=== PATIENT | male | born 1965 | race Caucasian/White ===

== ENCOUNTER 2018-01-14 11:34 | Observation (INO) | payer MEDICAID ==
[~2018-01-14] VITALS: Ht 160 cm; Wt 137.3 kg
--- NOTE | ~2018-01-14 | MORECARE ---
CASE MANAGEMENT DISCHARGE SUMMARY PATIENT: CYNTHIA SCHMITZ JOSHUA UNIT: [id number] ADM DATE: 01/14/18 AGE: 52 : 69 SEX: M ROOM/BED: D.2121 AUTHOR: CLINT HERNÁNDEZ PHYSICIAN: REFERRING PHYSICIAN: RADHA HEWITT MD DATE OF SERVICE: 01/16/18 Discharge Plan Patient Name: CYNTHIA SCHMITZ [facility] 1965 Planned Disposition: Home Anticipated Discharge Date: 01/15/18 Discharge Date: 01/15/2018 Expected LOS: 1 Initial Reviewer: [id number] Initial Review Date: 01/16/2018 Generated: 01/16/18 9:54 am Patient Name: CYNTHIA SCHMITZ Page [id number] at 0854 All edits/amendments must be made on the electronic document DICTATION DATE: 01/16/18853 HOSPITAL MORTICIAN: WILLIE 01/16/18 08 RPT#: [id number] DC DATE:01/15/18 STATUS: DIS IN [facility] [address] [place] [address] END OF REPORT
--- NOTE | ~2018-01-14 | HEMODYNAMI ---
PATIENT:CYNTHIA SCHMITZ MEDICAL RECORD: [id number] : 69 LOCATION:[facility] D.2121 ADMISSION DATE: 01/14/18 Generatedon:01/15/201810:38 Patient name: CYNTHIA SCHMITZ Patient #: [id number] SSN: DO B: 1965 Date of study: 01/15/2018 Page: Of Hemodynamic Procedure Report Patient Data Patient Demographics Procedure consent was obtained First Name: CYNTHIA Gender: Male Last Name: AINSLEY : 1965 Middle Initial: JOSHUA Age: 52 year(s) Patient #: [id number] Race: Additional ID: [id number] Contact details Address: [address] [place] [address] State: [place] City: [place] Zip code: [address] Admission Admission Data Admission Date: 01/14/2018 Admission Time: 11:34 Room #: D.2121 Procedure Procedure Types Cath Procedure Diagnostic Procedure LHC LHC w/Coronaries Procedure Description Procedure Date Procedure Date: 01/15/2018 Procedure Start Time: 10:28 Procedure End Time: 10:34 Procedure Staff Name Function Meng Barbosa MD Performing Physician Shelli Ferrera RT Monitor Zahira Michelle RT Scrub Rex Ríos RN Nurse Procedure Data Cath Procedure Fluoroscopy Diagnostic fluoroscopy Total fluoroscopy Time: 0.9 time: 0.9 min min Diagnostic fluoroscopy Total fluoroscopy dose: 649 dose: 649 mGy mGy Contrast Material Contrast Material Type Amount (ml) Isovue 300 46 Entry Location Entry Primary Successful Side Size Upsize Upsize Entry Closure Succes sful Closure Location (Fr) 1 (Fr) 2 (Fr) Remarks Device Remarks Femoral Right 5 Fr Exoseal artery Estimated blood loss: 5 ml Diagnostic catheters Device Type Used For End Catheter Placement MULTIPACK Pigtail 5 Fr LV Angiography catheter MULTIPACK JL 4.0 5Fr Left Coronary catheter Angiography MULTIPACK 3DRC 5Fr Right Coronary catheter Angiography Procedure Complications No complications Procedure Medications Medication Administration Route Dosage Oxygen etCO2 Nasal cannula 2 l/min Heparin Flush Bag added to field 2 bags (1000units/500ml NS) 0.9% NaCl I.V. 100 ml/hr Fentanyl I.V. 50 mcg Versed I.V. 1 mg Fentanyl I.V. 50 mcg Versed I.V. 1 mg Hemodynamics Rest Heart Rate: 76 (bpm) Pressure Samples Time Site Value (mmHg) Purpose Heart Use Rate(bpm) 10:29 LV 58/25,27 Snapshot 64 Snapshots Pre Cath Intra NCS Post Cath Vital Signs Time Heart Resp SPO2 etCO2 NIBP (mmHg) Rhythm Pain Sedation Rate (ipm) (%) (mmHg) Status Level (bpm) 10:13:34 65 16 96 32.5 151/98(119) NSR 0 (11) 10(A) , No pain 10:17:49 65 16 97 0 149/88(122) NSR 0 (11) 10(A) , No pain 10:22:10 68 17 98 31 161/89(136) NSR 0 (11) 10(A) , No pain 10:26:30 62 17 97 40.1 158/92(123) NSR 0 (11) 10(A) , No pain 10:30:52 66 16 97 27.2 142/84(118) NSR 0 (11) 9(A) , No pain 10:36:14 64 16 96 10.6 146/78(132) NSR 0 (11) 9(A) , No pain Medications Time Medication Route Dose Verified Delivered Reason Notes Effe ctiveness by by 10:23:32 Oxygen etCO2 2 Meng Goodman Per Nasal l/min Chelsey Ríos RN physician cannula 10:23:39 Heparin Flush added 2 Meng Goodman used for Bag to bags Chelsey Ríos RN procedure (1000units/500ml field NS) 10:23:47 0.9% NaCl I.V. 100 Meng Rex Per ml/hr Chelsey Ríos RN physician 10:23:53 Fentanyl I.V. 50 Meng Goodman for mcg Chelsey Ríos RN sedation 10:24:00 Versed I.V. 1 mg Meng Goodman for Chelsey Ríos RN sedation 10:27:28 Fentanyl I.V. 50 Meng Goodman for mcg Chelsey Ríos RN sedation 10:27:32 Versed I.V. 1 mg Meng Goodman for Tauth MD Ríos RN sedation Procedure Log Time Note 9:40:14 Zahira Michelle RT(R) sent for patient. Start room use. 9:55:12 Diagnostic Cath Status : Elective 9:57:15 Time tracking: Regular hours (M-F 7:00 - 5:00) 9:57:20 Plan of Care:Hemodynamics will remain stable., Cardiac rhythm will remain stable., Comfort level will be maintained., Respiratory function will remain adequate., Patient/ family verbilizes understanding of procedure., Procedure tolerated without complication., Recovers from procedure without complications.. 9:59:38 Patient received from Med II to CCL 2 Alert and oriented. Tansferred to table in Supine position. 9:59:39 Warm blankets applied, and mansoor hugger turned on for patient comfort. 9:59:39 Correct patient and procedure confirmed by team. 9:59:41 Signed procedure consent form obtained from patient. 9:59:42 ECG and BP/O2 sat monitors applied to patient. 10:11:10 Vital chart was started 10:11:11 Baseline sample Acquired. 10:11:18 Rhythm: sinus rhythm 10:11:20 Full Disclosure recording started 10:11:31 H&P Date Dictated: 01/15/2018 New H&P dictated by physician.. 10:11:32 Pre-procedure instructions explained to patient. 10:11:33 Pre-op teaching completed and patient verbalized understanding. 10:11:34 Family in waiting room. 10:11:37 Patient NPO since Midnight. 10:11:38 Is the patient allergic to Iodine/contrast media? No. 10:11:40 Was the patient premedicated? No 10:11:47 Is patient on blood thinner?Yes 10:11:48 ACC The patient was administered the following blood thiners within the last 24 hours: ACCPlavix 10:11:49 Patient diabetic? Yes. 10:11:50 If diabetic: On Metformin? No 10:11:53 Previous problem with sedation/anesthesia? No ? 10:11:55 Snore? Yes 10:11:55 Sleep apnea? Yes 10:11:56 Deviated septum? No 10:11:57 Opens mouth fully? Yes 10:11:58 Sticks out tongue? Yes 10:11:59 Airway obstruction? No ? 10:12:06 Dentures? No ? 10:12:09 Pre procedure: right dorsailis pedis pulse 2+ Normal; easily identifiable; not easily obliterated 10:12:12 Pre procedure: left dorsailis pedis pulse 2+ Normal; easily identifiable; not easily obliterated 10:12:15 Patient pain scale 0/10 ?. 10:12:25 IV patent on arrival in right wrist with 0.9% NaCl at KVO. 10:12:30 Lab results completed and on chart. 10:12:37 Right groin area was prepped with chlora-prep and draped in sterile fashion 10:12:38 Alarms reviewed by R. N. 10:12:39 Sharps counted by scrub and verified by R.N. 10:20:03 Physician arrived 10:20:03 --------ALL STOP TIME OUT------ 10:20:04 Final Timeout: patient, procedure, and site verified with staff and physician. All members of the team are in agreement. 10:20:08 Right groin site verified by team. 10:20:10 Physical assessment completed. ASA score P 2 - A patient with mild systemic disease as per Meng Barbosa MD. 10:23:32 Oxygen 2 l/min etCO2 Nasal cannula was administered by Rex Ríos RN; Per physician; 10:23:39 Heparin Flush Bag (1000units/500ml NS) 2 bags added to field was administered by Rex Ríos RN; used for procedure; 10:23:47 0.9% NaCl 100 ml/hr I.V. was administered by Rex Ríos RN; Per physician; 10:23:53 Fentanyl 50 mcg I.V. was administered by Rex Ríos RN; for sedation; 10:24:00 Versed 1 mg I.V. was administered by Rex Ríos RN; for sedation; 10:24:09 Sedation plan: IV Moderate Sedation Medication:Versed, Fentanyl 10:24:12 Use device set Femoral Dx 10:24:14 ACIST Syringe (56292) opened to sterile field. 10:24:14 Bag Decanter (2002S) opened to sterile field. 10:24:14 Medline Cath Pack ([id number]) opened to sterile field. 10:24:15 DIAGNOSTIC WIRE .035 260cm J wire (345125) opened to sterile field. 10:24:16 ACIST Hand Control (07783) opened to sterile field. 10:24:16 ACIST Manifold (64518) opened to sterile field. 10:24:17 DIAGNOSTIC Multipack 5Fr catheter set (RI9342) opened to sterile field. 10:24:17 Tegaderm 4 x 4 (1626W) opened to sterile field. 10:24:18 SHEATH Prelude 5Fr 0.035 (FKQ-4Y-20-035) opened to sterile field. 10:24:22 Zero performed for pressure channel P1 10:27:28 Fentanyl 50 mcg I.V. was administered by Rex Ríos RN; for sedation; 10::32 Versed 1 mg I.V. was administered by Rex Ríos RN; for sedation; 10:28:12 Procedure started. 10:28:15 Local anesthetic to right femoral artery with Lidocaine 2% by Meng Barbosa MD.INITIAL ACCESS ONLY 10:28:23 A 5 Fr sheath was inserted into the Right Femoral artery 10:28:35 A MULTIPACK Pigtail 5 Fr catheter was advanced over the wire and used for LV Angiography. 10:29:14 LV hemodynamics recorded. 10:29:15 LV gram done using AGUERO 10::18 Injector settings: Ml/sec: 5, Volume: 15, 10:29:23 EF : 60 % 10:29:27 Catheter removed. 10:29:34 A MULTIPACK JL 4.0 5Fr catheter was advanced over the wire and used for Left Coronary Angiography. 10:30:17 LCA angiography performed. 10:30:19 Injector settings: Ml/sec: 3, Volume: 6, 10:31:06 Catheter removed. 10:31:13 A MULTIPACK 3DRC 5Fr catheter was advanced over the wire and used for Right Coronary Angiography. 10:32:00 Catheter removed. 10:32:03 EXOSEAL 5Fr (EX500) opened to sterile field. 10:32:15 Sheath removed intact; hemostasis achieved with Exoseal to the Right Femoral artery. 10:32:17 Procedure ended.(Physican Out) 10:33:11 Fluoroscopy time 00.90 minutes. 10:33:17 Fluoroscopy dose: 649 mGy 10:33:17 Flurop Dose total: 649 10:33:29 Contrast amount:Isovue 300 46ml. 10:33:30 Sharps counted by scrub and verified by R.N. 10:33:37 Insertion/operative site no bleeding no hematoma. 10:33:39 Post-op/insertion site Right Femoral artery dressed using a 4 x 4 and Tegaderm. 10:33:42 Post right femoral artery:stable 10:33:48 Post Procedure Pulses reassessed and unchanged 10:33:52 Post procedure rhythm: unchanged. 10:34:11 Estimated blood loss: 5 ml 10:34:12 Post procedure instruction explained to patient.Patient verbalizes understanding. 10:34:13 Patient needs reinforcement of post procedure teaching. 10:34:30 Procedure and supply charges have been captured, reviewed, submitted and are correct. 10:34:37 Procedure Complication : No complications 10:34:39 Vital chart was stopped 10:34:40 See physician's report for complete and final results. 10:34:44 Report given to Med II. 10:34:48 Patient transfered to Med II with Stretcher. 10:34:51 Procedure ended. 10:34:51 Full Disclosure recording stopped 10:34:54 End room use (Document Last) Device Usage Item Name Manufacture Quantity Catalog Number Hospital Part Current M inimal Lot# / Charge Number Stock Stock Serial# Code ACIST Syringe Acist 1 14217 130103 882531 772014 2 0 (63372) [employer] Bag Decanter Microtek 1 785388 19003 119689 5 () Medical Inc. Medline Cath Cardinal 1 [id number] 960875 07494 754014 5 Pack Health ([id number]) DIAGNOSTIC WIRE St Monty 1 336339 035310 184095 282580 3 0 .035 260cm J wire (427214) ACIST Hand Acist 1 92284 317580 375492 862806 5 Control (94289) [employer] Inc ACIST Manifold Acist 1 59323 387543 321068 460145 5 (29833) [employer] Inc DIAGNOSTIC Cardinal 1 [id number] 376051 04738 758926 3 0 Multipack 5Fr Health catheter set (AD4815) Tegaderm 4 x 4 3M 1 1626W 636859 452519 766659 5 (1626W) SHEATH Prelude Merit 1 TAD-1D-01-035 188113 794997 555061 5 5Fr 0.035 Medical (AGR-8B-52-035) MULTIPACK Cardinal 1 670899 5 Pigtail 5 Fr Health catheter MULTIPACK JL Cardinal 1 [id number] 5 4.0 5Fr Health catheter MULTIPACK 3DRC Cardinal 1 981465 5 5Fr catheter Health EXOSEAL 5Fr Cardinal 1 EX500 951589 612448 077295 1 0 (EX500) Health Signature Audit Bishop Stage Time Signature Unsigned Intra-Procedure 01/15/2018 Zahira Michelle 10:38:33 AM RT(R) Signatures Monitor : Shelli Ferrera Signature : RT Date : Time : [address] [address]
--- NOTE | ~2018-01-14 | EC ---
PATIENT:CYNTHIA SCHMITZ DATE OF SERVICE: 01/14/18 SEX: M MEDICAL RECORD: [id number] DATE OF : 69 LOCATION:D.M2 D.212 AGE OF PATIENT: 52 ADMISSION DATE: 01/14/18 REFERRING PHYSICIAN: INTERPRETING PHYSICIAN: THEODORE BARBOSA MD ECHOCARDIOGRAM REPORT ECHO CHARGES 4 ECHO COMPLETE Date: 01/14/18 CLINICAL DIAGNOSIS: CP ECHOCARDIOGRAPHIC MEASUREMENTS (adult normal given) AC root (d.<3.7cm) 3.3 cm LV Septum d (<1.2 cm> 1.7 cm Valve Excursion 2.1 cm LV Septum (systole) 2.4 cm Left Atria (s.<4.0cm> 5.1 cm LVPW d(<1.2cm) 1.7 cm RV (d.<2.3cm) 2.5 cm LVPW (sytole) 2.3 cm LV diastole(<5.6CM) 4.5 cm MV E-F(>70mm/sec) cm LV systole 1.9 cm LVOT Diameter 1.8 cm MV exc.(>10mm) cm Est.ejection fraction (50-75%) % DOPPLER: LVIT cm/sec A 63.0 cm/sec E 90.0 cm/sec LA cm/sec RVSP 24.4 mmHg LVOT 112 cm/sec AOP1/2T m/s Asc. Ao 152 cm/sec RVOT 87.0 cm/sec RA cm/sec PA 131 cm/sec AV Gradient Peak 9.2 mmHg AV Mean 4.0 mmHg AV Area 2.0 cm MV Gradient Peak 3.5 mmHg MV Mean 1.1 mmHg MV Area cm COMMENTS: Wool Batting Worker: Josh RÍOS Intelligence Director: 1 Dr. Barbosa TAPE# PACS Pericardial Effusion N DATE OF SERVICE: 01/15/2018 FINDINGS: 1. Left ventricular chamber size is within normal limits. Left ventricular systolic function is normal. Overall ejection fraction estimated at 65%. 2. Left atrium is enlarged at 5.1 cm. Right atrium and right ventricular chamber sizes are as well mildly dilated. 3. Valvular structures have normal structure and motion. 4. Doppler interrogation reveals trace tricuspid regurgitation. No other valvular insufficiency or stenosis. Pulmonary systolic pressure is normal ECHOCARDIOGRAM REPORT [id number] CYNTHIA SCHMITZ estimated at 24 mmHg. 5. No evidence of pericardial effusion or left ventricular thrombus. TRANSINT:[id number] Voice Confirmation ID: [id number] DOCUMENT ID: [id number] THEODORE BARBOSA MD at 0924 CC: [id number] DICTATION DATE: 01/15/18 1049 LITHOGRAPHIC PROOFER: 01/15/18 1123 DIS IN 01/15/18 [facility] [address] [place] [id number]
--- NOTE | ~2018-01-14 | CN ---
PATIENT NAME:CYNTHIA SCHMITZ MEDICAL RECORD: [id number] : 69 LOCATION:D. D.2121 ADMIT DATE: 01/14/18 ACCOUNT: [id number] CONSULTING PHYSICIAN: THEODORE LOPEZ MD REFERRING PHYSICIAN: RADHA HEWITT MD DATE OF CONSULTATION: 01/14/2018 DIAGNOSES: 1. Chest pain, compatible with angina. 2. Shortness of breath. 3. Pulmonary edema. 4. Noninsulin-dependent diabetes. 5. Morbid obesity. HISTORY: This is a gentleman with no previous cardiac history, who has been having multiple episodes of chest discomfort compatible with angina over this weekend, started on Sunday. He has had multiple episodes of it. Each day, a pressure-like sensation across the anterior chest, like a ton of bricks is sitting on his chest. His EKG is with no acute ST-T abnormalities. He presented to the Emergency Room on Sunday night with this, was discharged. He presents to Dr. Hewitt today. He now has shortness of breath and his chest x-ray is compatible with pulmonary edema, which is new from the chest x-ray from Sunday. PHYSICAL EXAMINATION: GENERAL APPEARANCE: Well-nourished, well-developed, appears stated age. Level of distress, comfortable. PSYCHIATRIC: Mental status, alert, normal affect. Orientation, oriented to time, place and person. EYES: Lids and conjunctiva, noninjected. No discharge, no pallor. ENT: Lips, teeth, gums, normal dentition. Oropharynx, no cyanosis, no pallor. NECK: Carotid arteries, bilateral normal upstroke, no bruits, no thrills. JUGULAR VEINS: No jugular venous pressure or distention. CERVICAL LYMPH NODES: Nontender, nonenlarged. THYROID: Not enlarged. Nontender. No nodules. LUNGS: Respiratory effort, unlabored. CHEST: Normal curvature. No thoracic deformity. No chest wall tenderness. Percussion, resonant. Auscultation, clear. No wheezes, no rales, no rhonchi. CARDIOVASCULAR: Precordial exam, nondisplaced. No heaves or pericardial thrills. Rate and rhythm, regular. Heart sounds, normal S1, normal S2. No S3, no gallop, no rub. Systolic murmur, not heard. Diastolic murmur, not heard. EXTREMITIES: No cyanosis, no edema. Peripheral pulses, full and equal in all extremities, except as noted. No bruits appreciated. ABDOMEN: Soft, nondistended. Normal aorta. No bruit. Nontender. No masses. Liver, nontender, no hepatomegaly. Spleen, nontender, no splenomegaly. MUSCULOSKELETAL: No joint tenderness. No joint swelling. No erythema. NEUROLOGICAL: Normal gait, normal strength, normal tone. SKIN: Warm and dry. OVERALL IMPRESSION: Chest pressure, compatible with angina, now with new onset of pulmonary edema. There is high likelihood that this is ischemic heart disease in nature for the etiology of the chest pressure. We will proceed with coronary angiography in the a.m. Further care depends upon findings of the angiography. CONSULT REPORT [id number] CYNTHIA SCHMITZ TRANSINT:[id number] Voice Confirmation ID: [id number] DOCUMENT ID: [id number] THEODORE LOPEZ MD at 0924 CC: [id number] DICTATION DATE: 01/14/181253 OFFICE AUDITOR: 01/14/18 1604 DIS IN 01/15/18 [address] [place] [address]
--- NOTE | ~2018-01-14 | OP ---
PATIENT NAME: CYNTHIA SCHMITZ MEDICAL RECORD: [id number] :69 LOCATION:D.M2 D.2121 ADMISSION DATE:01/14/18 SURGEON: THEODORE LOPEZ MD DATE OF OPERATION: 01/15/2018 PROCEDURES: 1. Left heart catheterization. 2. Selective coronary angiography. 3. Left ventriculogram. INDICATION: Chest pain compatible with angina. PROCEDURE IN DETAIL: After informed consent was obtained and after detailed explanation of risks, benefits as well as alternative therapies, the patient elected to proceed with angiogram and heart catheterization. The right femoral area was prepped and draped in normal sterile fashion. Right femoral artery was cannulated via modified Seldinger technique with placement of 5-[place] sheath. All catheters exchanged through this sheath. FINDINGS: The left ventriculogram was performed in the standard 30-degree AGUERO view, reveals good cardiac wall motion throughout all segments. Overall ejection fraction estimated 60%. SELECTIVE CORONARY ANGIOGRAPHY: Left main, left anterior descending, left circumflex, right coronary artery are all smooth-walled vessels with no angiographic evidence of coronary artery disease. OVERALL IMPRESSION: 1. No angiographic evidence of coronary artery disease. 2. Normal left heart pressures. 3. Normal left ventricular systolic function. Chest pain is noncardiac in etiology. No further cardiac workup needs to be ascertained. TRANSINT:[id number] Voice Confirmation ID: [id number] DOCUMENT ID: [id number] THEODORE LOPEZ MD at 0924 CC: [id number] DICTATION DATE: 01/15/18 1041 RECEIVING SUPERVISOR: 01/15/18 1118 DIS IN 01/15/18 [facility] [address] [place] [address]
[2018-01-14 12:31] VITALS: BP 195/112; Ht 160 cm; Wt 137.3 kg
[2018-01-14 12:45] LABS: HEMATOCRIT 41.8 % (42.0-54.0); LYMPHOCYTES 23.1 % (15-50); MCH 28.5 pg (26.0-34.0); MCHC 33.5 g/dL (31.0-37.0); MCV 85.1 fL (80.0-100.0); MEAN PLATELET VOLUME 8.8 fL (7.4-10.4); NEUTROPHILS 70.3 % (40-80); PLATELET COUNT 267 10x3/uL (130-400); RBC 4.91 10x6/uL (4.20-6.10); RDW 13.4 % (11.5-14.5); WBC 8.9 10x3/uL (4.8-10.8)
[2018-01-14 13:10] LABS: CKMB 1.6 U/L (0.0-3.6); CREATINE KINASE 236 UL (21-232); TROPONIN-I < 0.017 ng/mL (0.000-0.060)
[2018-01-14 13:14] LABS: ALBUMIN 3.6 g/dL (3.4-5.0); ALKALINE PHOSPHATASE 84 U/L (46-116); ALT (SGPT) 40 U/L (10-68); BILIRUBIN - TOTAL 0.55 mg/dL (0.2-1.3); CALC OSMOLALITY 280 mosm/kg (275-300); CALCIUM 8.8 mg/dL (8.5-10.1); CARBON DIOXIDE 25.9 mmol/L (21.0-32.0); CHLORIDE - SERUM 103 mmol/L (98-107); CREATININE - SERUM 1.1 mg/dL (0.6-1.3); GLUCOSE 112 mg/dL (74-106); POTASSIUM - SERUM 3.9 mmol/L (3.5-5.1); PROTEIN - SERUM 7.7 g/dL (6.4-8.2); SODIUM 139 mmol/L (136-145); UREA NITROGEN 19 mg/dL (7-18); eGFR NON AFRICAN AMERICAN 75 mL/min (90-120)
[2018-01-14 15:42] VITALS: BP 123/81
[2018-01-14 18:59] LABS: CKMB 1.2 U/L (0.0-3.6); CREATINE KINASE 236 UL (21-232)
[2018-01-14 19:00] LABS: TROPONIN-I < 0.017 ng/mL (0.000-0.060)
[2018-01-14 21:22] VITALS: BP 154/89
[2018-01-15] VITALS (10 sets, daily range): BP systolic 122–135; BP diastolic 67–91
[2018-01-15 01:00] LABS: CKMB 0.9 U/L (0.0-3.6); CREATINE KINASE 196 UL (21-232)
[2018-01-15 01:01] LABS: TROPONIN-I < 0.017 ng/mL (0.000-0.060)
[2018-01-15 06:22] LABS: BASOPHILS 0.3 % (0-2); EOSINOPHILS 1.4 % (0-7); HEMATOCRIT 45.2 % (42.0-54.0); HEMOGLOBIN 15.3 g/dL (13.5-17.5); IMMATURE GRANULOCYTES 0.6 % (0-5); LYMPHOCYTES 18.6 % (15-50); MCH 29.8 pg (26.0-34.0); MCHC 33.8 g/dL (31.0-37.0); MEAN PLATELET VOLUME 9.8 fL (7.4-10.4); MONOCYTES 7.1 % (2-11); PLATELET COUNT 311 10x3/uL (130-400); RBC 5.13 10x6/uL (4.20-6.10); RDW 13.7 % (11.5-14.5); WBC 9.6 10x3/uL (4.8-10.8)
[2018-01-15 06:31] LABS: MCV 88.1 fL (80.0-100.0)
[2018-01-15 06:41] LABS: ALBUMIN 3.6 g/dL (3.4-5.0); ANION GAP 10.6 mmol/L (8-16); BILIRUBIN - TOTAL 0.78 mg/dL (0.2-1.3); CALCIUM 8.8 mg/dL (8.5-10.1); POTASSIUM - SERUM 3.6 mmol/L (3.5-5.1); PROTEIN - SERUM 8.4 g/dL (6.4-8.2)
[2018-01-15 06:42] LABS: CREATININE - SERUM 1.5 mg/dL (0.6-1.3)
[2018-01-15] MEDS ORDERED: LISINOPRIL5 MG PO (16:34)
[2018-01-15] MEDS ORDERED: GLUCOPHAGE500 MG PO (16:35)
[2018-01-15] MEDS ORDERED: PRAVACHOL20 MG PO (16:35)
[2018-01-15] MEDS ORDERED: FUROSEMIDE20 MG PO (16:36)
== END 2018-01-15 18:27 | disposition home or self-care (01) ==
LOC: D.M2 11:34 → OBSVTIME 11:34 → D.M2 01-15 18:27
PROVIDERS: Family Medicine
DX: J81.0 Acute pulmonary edema (principal); E11.9 Type 2 diabetes mellitus without complications; E66.01 Morbid (severe) obesity due to excess calories; Z68.43 Body mass index [BMI] 50.0-59.9, adult; K21.9 Gastro-esophageal reflux disease without esophagitis

== ENCOUNTER 2018-09-23 07:18 | Day surgery (SDC) | payer MEDICAID ==
[~2018-09-23] VITALS: Ht 160 cm; Wt 123.6 kg
[~2018-09-23 07:18] MED LIST: FUROSEMIDE20 MG PO; GLUCOPHAGE500 MG PO; LISINOPRIL5 MG PO; PRAVACHOL20 MG PO
[2018-09-23 07:38] LABS: HEMATOCRIT 41.1 % (42.0-54.0); MCH 28.4 pg (26.0-34.0); MCHC 34.1 g/dL (31.0-37.0); MCV 83.4 fL (80.0-100.0); RBC 4.93 10x6/uL (4.20-6.10); WBC 6.2 10x3/uL (4.8-10.8)
[2018-09-23 07:57] LABS: CALC OSMOLALITY 275 mosm/kg (275-300); CHLORIDE - SERUM 101 mmol/L (98-107); CREATININE - SERUM 1.1 mg/dL (0.6-1.3); POTASSIUM - SERUM 4.1 mmol/L (3.5-5.1); SODIUM 137 mmol/L (136-145); UREA NITROGEN 19 mg/dL (7-18); eGFR NON AFRICAN AMERICAN 75 mL/min (90-120)
[2018-09-23 08:00] LABS: GLUCOSE 95 mg/dL (74-106)
[2018-09-23] MEDS ORDERED: KLOR-CON 88 MEQ PO (08:01)
[2018-09-23 08:06] VITALS: BP 150/74; Ht 160 cm; Wt 123.6 kg
--- NOTE | 2018-09-23 09:50 | NUR ---
PT DC INSTRUCTIONS REVIEWED AT THIS TIME, PT VERBALIZES UNDERSTANDING. PT IV REMOVED AT THIS TIME, NO REDNESS OR SWELLING NOTED AT SITE.
--- NOTE | 2018-09-23 09:55 | NUR ---
PT LEAVING 0PS AT THIS TIME VIA WC.
--- NOTE | 2018-09-26 16:17 | OP ---
PATIENT NAME: CYNTHIA SCHMITZ MEDICAL RECORD: [id number] :69 LOCATION:D.OPS ADMISSION DATE: SURGEON: ROSELYN MENDOZA DO DATE OF OPERATION: 09/23/2018 PROCEDURE: Colonoscopy with polypectomy. INDICATION FOR PROCEDURE: Screening for colorectal cancer. SCOPE: Olympus video pediatric colonoscope. MEDICATIONS: Propofol IV per anesthesia. WITHDRAWAL TIME: 12 minutes. ESTIMATED BLOOD LOSS: Minimal. COMPLICATIONS: None. FINDINGS: Informed consent was given. The patient was made comfortable with the above medication. After reaching an adequate level of sedation by slow IV push, the patient was placed on his left side. A digital rectal examination was performed and was normal. The endoscope was then advanced under direct visualization through the rectum to the cecum, confirmed by the presence of the appendiceal orifice and the ileocecal valve. The endoscope was slowly withdrawn and mucosa was carefully examined. A single benign-appearing polyp that measured approximately 1-2 mm in diameter was located in the ascending colon. It was removed using a hot forceps in one piece and completely retrieved. Retroflexion was performed in the rectum with a normal-appearing rectal wall. There were no diverticula seen on today's examination. The endoscope was withdrawn from the patient. The patient tolerated the procedure well and there were no complications. IMPRESSION: 1. A single benign-appearing polyp in the ascending colon, status post polypectomy. 2. Otherwise, normal colonoscopy. PLAN AND RECOMMENDATIONS: 1. Discharge home when recovery parameters are met. 2. Follow up biopsy specimen results. 3. Continue current diet. 4. Continue current medications. 5. Recall will be dependent on results of pathology from polyp removed today, but I anticipate a recall in 5 years. TRANSINT:[id number] Voice Confirmation ID: [id number] DOCUMENT ID: [id number] OPERATIVE REPORT [id number] CYNTHIA SCHMITZ ROSELYN MENDOZA DO at 1617 CC: [id number] DICTATION DATE: 09/23/18 0859 PRODUCTION UNDERWRITER: 09/23/18 1148 [facility] 09/23/18 [facility] [address] [place] [id number]
== END 2018-09-23 09:55 | disposition home or self-care (01) ==
LOC: D.OPS 07:18
PROVIDERS: Anesthesiology; ATTEND Internal Medicine Gastroenterology
DX: Z12.11 Encounter for screening for malignant neoplasm of colon (principal); K63.5 Polyp of colon; Z01.812 Encounter for preprocedural laboratory examination